=== PATIENT | male | born 1950 | race Caucasian/White ===

== ENCOUNTER 2016-12-17 08:14 | Inpatient (IN) | payer OTHER ==
[2016-12-17] MEDS ORDERED: Aspirin TAB* 325 MG PO ONE (08:18)
[2016-12-17] MEDS ORDERED: Nitroglycerin TAB 0.4 MG* 0.4 MG TAB SL PRN ×2 (08:18→10:04)
[2016-12-17] MEDS ORDERED: Heparin for STEMI(*) 5,000 UNITS/ML 1 ML VIAL IV ONE (08:18)
[2016-12-17] MEDS ORDERED: Nitroglycerin TAB 0.4 MG* 0.4 MG TAB ONE (08:25)
[2016-12-17] MEDS ORDERED: NS 0.9% 1000 ML* 2,000 ML IV ONE (08:26)
[2016-12-17] MEDS ORDERED: fentaNYL* 50 MCG/ML 2 ML VIAL (100 MCG VIAL) ONE (08:31)
[2016-12-17] MEDS ORDERED: nitroGLYCERIN DRIP* 250 ML ONE (08:32)
[2016-12-17] MEDS ORDERED: VERAPAMIL 2.5 MG/ML 4 ML VIAL ONE (08:32)
[2016-12-17] MEDS ORDERED: Heparin(*) 1000 UNIT/ML 10 ML VIAL CATH LAB IV ONE (08:32)
[2016-12-17] MEDS ORDERED: Heparin 2 UNITS/ML IVPREMIX* 2,000 ML IV ONE (08:32)
[2016-12-17] MEDS ORDERED: Lidocaine 1% INJ* 10 MG/ML 30 ML SDV ONE (08:32)
[2016-12-17] MEDS ORDERED: Midazolam* 1 MG/ML 5 ML VIAL (5 MG) ONE (08:32)
[2016-12-17] MEDS ORDERED: Iohexol 350 (CONTRAST) 200 ML MDV IV ONE ×2 (08:32→09:34)
[2016-12-17 08:43] LABS: Hematocrit 50 % (42-52); Hemoglobin 16.6 g/dl (14.0-18.0); Mean Corpuscular HGB Conc 33 g/dl (31-36); Mean Corpuscular Hemoglobin 28 pg (27-31); Mean Corpuscular Volume 86 fL (80-94); Mean Platelet Volume 9 um3 (7.4-10.4); Red Blood Count 5.87 10^6/ul (4.0-5.4); Red Cell Distribution Width 14 % (10.5-15); White Blood Count 8.3 10^3/ul (3.5-10.8)
[2016-12-17 09:03] LABS: Albumin 4.9 g/dL (3.2-5.2); BUN/Creatinine Ratio 17.6 (8-20); Calcium 9.8 mg/dL (8.6-10.3); EGFR African American 88.5 (>60); EGFR Non-African American 68.8 (>60); Globulin 3.7 g/dL (2-4); Potassium 3.2 mmol/L (3.5-5.0); Total Bilirubin 0.7 mg/dL (0.2-1.0); Total Protein 8.6 g/dL (6.4-8.9)
[2016-12-17 09:05] LABS: Troponin I 0.34 ng/mL (<0.04)
[2016-12-17] MEDS ORDERED: KCL 10 MEQ/50 ML IVPREMIX* 0 MEQ/0 ML BAG ONE (09:08)
[2016-12-17] MEDS ORDERED: Atropine SYRINGE* 0.1 MG/ML 10 ML SYRINGE (1 MG) ONE (09:24)
[2016-12-17] MEDS ORDERED: Ticagrelor* 90 MG TAB PO ONE (09:41)
[2016-12-17] MEDS ORDERED: Zolpidem TAB* 5 MG PO PRN (10:04)
[2016-12-17] MEDS ORDERED: Acetaminophen TAB* 325 MG PO PRN (10:04)
[2016-12-17] MEDS ORDERED: Ondansetron INJ* 2 MG/ML VIAL IV PRN (10:04)
[2016-12-17] MEDS ORDERED: LORazepam TAB(*) 1 MG PO PRN (10:04)
[2016-12-17] MEDS ORDERED: oxyCODONE/Acetamin 5/325 MG* TAB PO PRN (10:04)
[2016-12-17] MEDS ORDERED: NS 0.9% 1000 ML* 1,000 ML IV PRN (10:15)
[2016-12-17] MEDS ORDERED: Norepinephrine 16MCG/ML IVPRE* 4,000 MCG/250 ML BAG IV ONE (10:24)
--- NOTE | 2016-12-17 14:39 | ED ---
Johnna Andrade Matthew, scribed for Sekou Knight MD on 12/17/16 at 0836 . HPI Chest Pain - HPI Summary HPI Summary: A 66 y/o male presents to the ED with chest pain since late last night. The pain is rated 5/10 in severity, radiates to the left arm, and is described as dull/aching. Associated symptoms include nausea. The patient denies SOB. 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 He does not take medications regularly and denies PMHx. He states that he was generally ill a few eeks ago. - History of Current Complaint Chief Complaint: EDChestPainROMI Time Seen by Provider: 12/17/16 08:26 Hx Obtained From: Patient Onset/Duration: Started Hours Ago, Atraumatic, Still Present Timing: Constant Initial Severity: Moderate Current Severity: Moderate Pain Intensity: 5 Pain Scale Used: 0-10 Numeric Chest Pain Radiates: Yes Chest Pain Radiates To:: Arm - Left Character: Dull/Aching Associated Signs and Symptoms: Positive: Chest Pain, Nausea - Allergy/Home Medications Allergies/Adverse Reactions: Allergies Allergy/AdvReac Type Severity Reaction Status Date / Time No Known Allergies Allergy Verified 12/17/16 08:19 PMH/Surg Hx/FS Hx/Imm Hx Previously Healthy: Yes Endocrine/Hematology History: Denies: Hx Diabetes Infectious Disease History: No Infectious Disease History: Denies: Traveled Outside the [place] in Last 30 Days - Family History Known Family History: Negative: Cardiac Disease - Social History Lives: With Family Alcohol Use: None Hx Substance Use: No Substance Use Type: Reports: None Hx Tobacco Use: No Smoking Status (MU): Never Smoked Tobacco Review of Systems Constitutional: Negative Negative: Fever, Chills Eyes: Negative Negative: Erythema ENT: Negative Negative: Sore Throat Positive: Chest Pain Respiratory: Negative Negative: Shortness Of Breath, Cough Positive: Nausea. Negative: Abdominal Pain, Vomiting Genitourinary: Negative Negative: dysuria, hematuria Musculoskeletal: Negative Negative: Myalgia, Edema Skin: Negative Negative: Rash Neurological: Negative Psychological: Normal All Other Systems Reviewed And Are Negative: Yes Physical Exam Triage Information Reviewed: Yes Vital Signs On Initial Exam: Initial Vitals Temp Pulse Resp BP Pulse Ox 97.1 F 70 16 111/54 98 12/17/16 08:19 12/17/16 08:19 12/17/16 08:19 12/17/16 08:19 12/17/16 08:19 Vital Signs Reviewed: Yes Appearance: Positive: Pain Distress - The patient was clutching his chest. Skin: Positive: Warm, Dry Head/Face: Positive: Other - Normocephalic; Atraumatic Eyes: Positive: Conjunctiva Clear Dental: Negative: Cervical Lymphadenopathy Neck: Positive: Other: - Musculoskeletal ROM normal neck; No JVD Respiratory/Lung Sounds: Positive: Breath Sounds Present. Negative: Stridor, Tracheal Deviation Cardiovascular: Positive: RRR. Negative: Murmur Abdomen Description: Positive: Nontender, Soft, Other: - No Rebound. Negative: Distended, Guarding Bowel Sounds: Positive: Present Musculoskeletal: Negative: Edema Left, Edema Right Neurological: Positive: Alert, Oriented to Person Place, Time Psychiatric: Positive: Affect/Mood Appropriate Diagnostics - Vital Signs Vital Signs Temp Pulse Resp BP Pulse Ox 12/17/16 08:19 97.1 F 70 16 111/54 98 - Laboratory Result Diagrams: 12/17/16 08:25 12/17/16 08:25 Lab Statement: Any lab studies that have been ordered have been reviewed, and results considered in the medical decision making process. - EKG 08:10 Cardiac Rate: NL - 61 bpm EKG Rhythm: Sinus Rhythm EKG Interpretation: STEMI inferior/Posterior 08:26 Cardiac Rate: NL - 63 bpm EKG Rhythm: Sinus Rhythm EKG Interpretation: STEMI inferior/posterior Chest Pain Course/Dx - Course Assessment/Plan: A 66 y/o male presents to the ED with chest pain since late last night. The pain is described as dull and radiates into the left arm. EKG shows inferior/posterior STEMI. Called STEMI alert. In the ED course, the patient was given aspirin, Heparin, and 2L IV fluids. Discussed the case with Dr. Fall who was at the bedside. He recommend IV fluids, and NO NTG. He also requested that we not give the patient brilinta or Plavix in the ED and that it would be given in the catheterization lab. The patient was admitted to [facility] [place]. - Diagnoses Provider Diagnoses: STEMI During the Visit The Following Alert/Code Occurred: STEMI - Provider Notifications Discussed Care Of Patient With: Dr. Fall (Interventionalist) at 08:26 -- Dr. Fall was at the bed sided and recommened IV fluids and no NTG. He also requested that we not give the patient brilinta or Plavix in the ED and that it would be given in the catheterization lab. - Critical Care Time Critical Care Time: 30-74 min - 35 mins Discharge - Discharge Plan Condition: Guarded Disposition: ADMITTED TO [facility] Referrals: Darrius Martinez MD [Primary Care Provider] - The documentation as recorded by the Johnna rios Matthew accurately reflects the service I personally performed and the decisions made by , Sekou Knight MD.
[2016-12-17 14:51] LABS: Potassium 3.7 mmol/L (3.5-5.0)
[2016-12-17 14:55] LABS: Troponin I 5.42 ng/mL (<0.04)
[2016-12-17] MEDS ORDERED: NS 0.9% 1000 ML* 1,000 ML IV SCH (15:45)
[2016-12-17] MEDS: Atorvastatin* 80 MG TAB PO SCH (17:57)
[2016-12-17] MEDS: Ticagrelor* 90 MG TAB PO SCH (20:44)
--- NOTE | 2016-12-17 20:47 | HP ---
HISTORY AND PHYSICAL: DATE OF ADMISSION: 12/17/16 PRIMARY CARE PHYSICIAN: None. HISTORY OF PRESENT ILLNESS: A 66-year-old male presenting to the ER with acute inferior wall ST-zbigniew vation infarct. He has no significant previous medical history. About a week ago while walking in the cold, he deve loped precordial burning discomfort, which resolved when he stopped walking. Duration was about 10 to 15 minutes. He was then asymptomatic until yesterday. When at rest in the evening at 10:30 p.m. , he developed left- sided precordial chest pain that radiated down into his left arm and pretty muc h continued all night long and was present this morning. This morning, he felt somewhat nauseous as well. He presented in the ER. EKG at 08:10:55 hours revealed sinus rhythm with PACs and ST elevat ion in II, III, aVF with reciprocal right precordial and lateral ST depression. He had a nondiagnos tic Q-wave in aVF. He received aspirin, heparin, and was brought to the medical laboratory technologist. PAST MEDICAL HISTORY: Hyperlipidemia that he has been treating with diet. PREHOSPITAL MEDICATIONS: None. ALLERGIES: None to medications. FAMILY HISTORY: Positive for hyperlipidemia and positive for coronary artery disease in his father in his 80s. SOCIAL HISTORY: He is a nonsmoker. He is retired. REVIEW OF SYSTEMS: General: No weight loss. No fever. [facility] wit hout rash or symptoms. INDUSTRIAL RELATIONS OFFICER: No history of TIA or CVA. GI: No history of peptic ulcer disease or bleeding. Remainder all negative. PHYSICAL EXAMINATION VITAL SIGNS: ER initial BP 111/54 and heart rate 70s. HEENT: Unremarkable without xanthelasma, scleral injection, or jaundice. EOMs normal. Cranial ner ves grossly intact. NECK: Carotids were normal without bruits. JVP normal. Trachea midline. No thyromegaly. LUNGS: Clear to percussion and auscultation. He was very anxious, complaining of severe pain in pa rt in his left hand, where there was an attempt to place an IV. He had a right antecubital IV. He w as way more anxious and uncomfortable than typical. He does not have a history of anxiety. CARDIAC: Exam was notable for normal apical impulse, RV was not palpable, normal heart sounds. No gallop, murmur, or rub. ABDOMEN: Soft, nontender. Normal bowel sounds. Aorta and liver not palpable. No bruit. EXTREMITIES: Femoral pulses, radial pulses, and pedal pulses were all palpable. Extremities slightl y cool and diaphoretic. No cyanosis, clubbing, or edema. PSYCH: He was extremely anxious, restless, having great difficulty laying still. DIAGNOSTIC STUDIES/LAB DATA: EKG as above. CBC normal. Potassium 3.2, repeat 3.7 after K run. Lactic acid was elevated at 3.8. First troponi n 0.34. BNP normal at 65. LDL high at 185, on no statin. Creatinine 1.08. IMPRESSION/RECOMMENDATIONS: 1. Acute inferior wall ST-elevation infarct. He underwent emergent catheterization. 2. Hyperlipidemia. He will be treated with high-dose statins. [id number]/[facility] #: [id number]
--- NOTE | 2016-12-18 01:16 | CATH ---
CC: Francisco Fall MD STENT REPORT: DATE OF PROCEDURE: 12/17/16 PROCEDURES: 1. Right femoral artery and venous access with ultrasound. Bilateral selective coronary cineangiography. 2. Left heart catheterization. 3. Left ventriculography. 4. Stent placement RCA 3.0 x 24 Synergy drug-eluting stent. 5. Defibrillation. 6. Angio-Seal, right femoral artery. HISTORY: A 66-year-old male presenting to the ER with acute inferior wall ST- elevation infarct. The patient was extremely anxious, restless. En route to the rn labor and delivery, his antecubital IV was lost. When he arrived in the rn labor and delivery, he had no IV access, therefore radial approach was not pursued, instead femoral approach was utilized to allow venous sheath placement for IV access as well as coronary angiography and intervention. PROCEDURE ACCESS: Right femoral artery sheath 6F with ultrasound guidance, right femoral vein 5-Armenian with ultrasound guidance. DIAGNOSTIC CATHETERS: A 6FR4, 6FL4, 6F pigtail. After diagnostic angiography, the RCA was stented using a 6-F hockey stick guide with a 14 BMW wire which easily crossed the occlusion point, and was used to deploy a 3.0 x 24 Synergy drug-eluting stent after predilatation with a 2.5 mm balloon, at 18 atmospheres 25 seconds. Immediately after stent placement, he had ventricular fibrillation, was defibrillated with 150 watt seconds biphasic shock to sinus rhythm. He received IV volume. As he persisted with asymptomatic blood pressures in the 80s at the end of the procedure, he was transferred to the ICU with Levophed 5 mcg per minute through the venous sheath in addition to volume. After stent placement, left heart catheterization was performed. The right femoral artery was closed with Angio-Seal. HEMODYNAMICS: Initial BP 141/88, LV postrevascularization 71/8, no aortic valve gradient on pullback. ANGIOGRAPHY: Left main. The left main is short, has no stenosis. LAD. The LAD is heavily calcified, moderate, has a small proximal diagonal branch, after which the LAD has a fairly discrete 70% stenosis at the first septal machine rigger. The LAD then reconstitutes, supplies a moderate diagonal after which the LAD has a lengthy, approximately 30 mm tubular stenosis with a focal area of 80% to 90% stenosis. Distal LAD extends past the apex and supplies the inferoapical segment, has SIXTO-3 flow. Circumflex. The circumflex is not dominant, is large, has a proximal 70% stenosis before the origin of a large marginal branch, the circumflex ends with a small posterolateral. RCA: The RCA is moderate, dominant, has a tapering proximal stenosis culminating in a mid occlusion with distal SIXTO-0 flow. After stent placement in RCA there is no residual stenosis, there is distal SIXTO-3 flow, normal myocardial blush. Distal RCA has a fairly extensive distribution. LV Gram. There is localized inferobasilar akinesis to dyskinesis, with LVEF of 60%, prominent papillary muscles. Right femoral artery sheath entry is in segment 2, there is no stenosis. CONCLUSION: Severe 3-vessel disease culprit RCA occlusion with acute inferior wall and ST-elevation infarct, excellent angiographic result with drug-eluting stent placement. He will be referred for staged LAD circumflex intervention, which may require rotational atherectomy. Normal LVEF with regional wall-motion abnormality. Systolic hypertension with low preload, responding to volume and low-dose Levophed. Successful Angio-Seal, right femoral artery. Left femoral venous sheath placement for venous access as his IV was lost in transport. [id number]/[facility] #: [id number] MTDD
[2016-12-18 05:58] LABS: Hematocrit 38 % (42-52); Hemoglobin 12.6 g/dl (14.0-18.0); Mean Corpuscular HGB Conc 33 g/dl (31-36); Mean Corpuscular Hemoglobin 29 pg (27-31); Mean Corpuscular Volume 86 fL (80-94); Mean Platelet Volume 8 um3 (7.4-10.4); Red Blood Count 4.43 10^6/ul (4.0-5.4); Red Cell Distribution Width 14 % (10.5-15); White Blood Count 6.2 10^3/ul (3.5-10.8)
[2016-12-18 06:11] LABS: BUN/Creatinine Ratio 12.2 (8-20); Calcium 8.4 mg/dL (8.6-10.3); Potassium 3.7 mmol/L (3.5-5.0)
[2016-12-18 06:21] LABS: Troponin I 15.62 ng/mL (<0.04)
[2016-12-18] MEDS: Ticagrelor* 90 MG TAB PO SCH ×2 (09:03→21:30)
[2016-12-18] MEDS: Aspirin Low Dose CHEW TAB* 81 MG PO SCH (09:03)
[2016-12-18] MEDS: Atorvastatin* 80 MG TAB PO SCH (16:59)
[2016-12-19] MEDS: Ticagrelor* 90 MG TAB PO SCH ×2 (09:26→19:58)
[2016-12-19] MEDS: Aspirin Low Dose CHEW TAB* 81 MG PO SCH (09:26)
[2016-12-19] MEDS: Metoprolol Tartrate TAB* 25 MG PO SCH ×2 (12:00→19:58)
[2016-12-19] MEDS: Atorvastatin* 80 MG TAB PO SCH (16:57)
[2016-12-20 08:08] VITALS: BP 123/82
[2016-12-20] MEDS: Aspirin Low Dose CHEW TAB* 81 MG PO SCH (08:09)
[2016-12-20] MEDS: Metoprolol Tartrate TAB* 25 MG PO SCH (08:09)
--- NOTE | 2016-12-20 08:22 | DS ---
DISCHARGE SUMMARY: DATE OF ADMISSION: 12/17/16 DATE OF DISCHARGE: 12/20/2016 FINAL DIAGNOSIS: Acute ST-segment elevation inferior wall myocardial infarction. SECONDARY DIAGNOSIS: Hyperlipidemia. HISTORY AND HOSPITAL COURSE: This is Dr. Moseley dictating a discharge summary for Dr. Francisco Fall regarding Mr. Josh Fowler who was admitted on 12/17/16 in the throes of an acute inferior wall myocardial infarction. Please refer to Dr. Fall' H and P for complete details of presentation. He was brought emergently to the cardiovascular laboratory where cardiac catheterization was performed. This revealed severe triple-vessel disease with a culprit right coronary artery occlusion with acute inferior ST-segment elevation myocardial infarction. He underwent intervention to the right coronary artery with deployment of a 3.0 x 24 mm long Synergy drug-eluting stent after pre-dilatation with balloon angioplasty. Immediately after stent placement, he developed ventricular fibrillation and was defibrillated successfully. He initially had low blood pressures but responded well to Levophed and volume. His other coronary artery disease included diffuse disease in the left anterior descending artery with a 70% stenosis at the first septal aerophysics engineer followed by a lengthy segment of 30- mm tubular stenosis with a focal 80% to 90% stenosis at the distal LAD extended past the apex and supplied the inferior apical segments. The circumflex had a proximal 70% stenosis before the origin of a large obtuse marginal branch. Left ventricular branch showed focal inferior basilar akinesis and dyskinesis with an EF of 60%. The patient was up and about on medical management and did well with no recurrent chest, throat, jaw, or arm discomfort. His EKG showed evolution of an incomplete inferior wall myocardial infarction with good R-wave preservation in II and aVF with very minimal Q waves, a larger Q wave in III with T-wave inversion in the inferior leads. PHYSICAL EXAMINATION: On the day of the discharge, vital signs revealed blood pressure 120/79, pulse 58, respirations 16, O2 saturation 98%, afebrile. Neck was supple. No increased JVP. Carotid without bruit. Lungs were clear. Heart revealed no visible heaves. No palpable heaves or thrills. Normal S1 and S2 with no significant systolic or diastolic murmur. Extremities were without edema. The right groin area was well-healed. Peripheral pulses were intact. Neuro: The patient was alert and oriented with normal mentation. Musculoskeletal: The patient with normal gait. Psychiatric: The patient with normal affect. DIAGNOSTIC STUDIES: EKG on the date of discharge showed sinus bradycardia with incomplete inferior WI. MEDICATIONS AT THE TIME OF DISCHARGE: Included: 1. Aspirin 81 mg a day. 2. Atorvastatin 80 mg a day. 3. Metoprolol tartrate 25 mg twice a day. 4. Prasugrel 10 mg a day. 5. Nitroglycerin sublingually. FOLLOWUP INSTRUCTIONS: The patient has a scheduled followup appointment with Dr. Francisco Fall on December 27 for further management of his residual coronary artery disease. All questions of the patient were answered to his satisfaction. He received an education booklet and stent card by Dr. Fall. CC: Dr. Francisco Fall; Dr. Darrius Martinez, [place] * [id number]/[facility] #: [id number] [facility]ENT[facility]ala
[2016-12-20] MEDS ORDERED: CMC:Prasugrel (NF) 10 MG PO SCH (09:00)
== END 2016-12-20 10:15 | disposition home or self-care (01) | DRG 246 ==
LOC: ED 08:14 → ICU 08:40 → MEDTELE 12-18 17:43
PROVIDERS: ADMIT Internal Medicine Cardiovascular Disease; ATTEND Internal Medicine Cardiovascular Disease
PROC: 027034Z Dilation of Coronary Artery, One Artery with Drug-eluting Intraluminal Device, Percutaneous Approach (ICD-10-PCS; 2016-12-17)
PROC: 4A023N7 Measurement of Cardiac Sampling and Pressure, Left Heart, Percutaneous Approach (ICD-10-PCS; 2016-12-17)
PROC: B2111ZZ Fluoroscopy of Multiple Coronary Arteries using Low Osmolar Contrast (ICD-10-PCS; 2016-12-17)
PROC: B2151ZZ Fluoroscopy of Left Heart using Low Osmolar Contrast (ICD-10-PCS; 2016-12-17)
PROC: 5A2204Z Restoration of Cardiac Rhythm, Single (ICD-10-PCS; principal; 2016-12-17 08:30)
DX: I21.19 ST elevation (STEMI) myocardial infarction involving other coronary artery of inferior wall (principal); I49.01 Ventricular fibrillation; E78.5 Hyperlipidemia, unspecified; I25.10 Atherosclerotic heart disease of native coronary artery without angina pectoris; Z79.82 Long term (current) use of aspirin; Z82.49 Family history of ischemic heart disease and other diseases of the circulatory system
CPT/HCPCS: 36415; 80048; 80053; 82550; 82553; 83605; 83721; 83880; 84132; 84484; 85025; 85610; 85730; 93005; A9270-GY; C1725; C1760; C1769; C1876; C1887; C9606-RC; J0461; J1644; J2250; J2405; J3010; J3480